=== PATIENT | female | born 1985 | race American Indian/Alaskan Native ===

== ENCOUNTER 2018-07-09 19:56 | Emergency (ER) | payer BC, OTHER ==
[2018-07-09 20:28] VITALS: BP 136/94
[2018-07-09] MEDS ORDERED: TYLENOL PO ONE ×2 (21:11→22:34)
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
[2018-07-09] MEDS ORDERED: TYLENOL ONE (21:14)
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
[2018-07-09] MEDS ORDERED: IBUPROFEN PO ONE (22:34)
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
== END 2018-07-09 23:13 | disposition home or self-care (01) ==
LOC: ED 19:56
DX: S43.402A Unspecified sprain of left shoulder joint, initial encounter (principal); S73.102A Unspecified sprain of left hip, initial encounter; M62.830 Muscle spasm of back; F17.200 Nicotine dependence, unspecified, uncomplicated; D25.9 Leiomyoma of uterus, unspecified; Z98.890 Other specified postprocedural states; V49.49XA Driver injured in collision with other motor vehicles in traffic accident, initial encounter; Y93.89 Activity, other specified; Y92.410 Unspecified street and highway as the place of occurrence of the external cause; Y99.8 Other external cause status
CPT/HCPCS: 72100